=== PATIENT | female | born 1940 | race Caucasian/White ===

== ENCOUNTER 2018-12-13 06:51 | Outpatient (CLI) | payer MEDICARE ==
[~2018-12-13] VITALS: Ht 152.4 cm; Wt 61.7 kg
[2018-12-13] VITALS (31 sets, daily range): BP systolic 115–179; BP diastolic 46–125; PULSE 79–98
[2018-12-13] MEDS ORDERED: LASIX 40MG TABL40 MG PO (07:02)
[2018-12-13] MEDS ORDERED: PRILOSEC 20MG20 MG PO (07:03)
[2018-12-13] MEDS ORDERED: AMITRIPTYLINE H50 M1 PO (07:05)
[2018-12-13] MEDS ORDERED: SYNTHROID0.1 MG/TAB PO (07:06)
[2018-12-13] MEDS ORDERED: ASPIRIN 81M81 MG/TA2 PO (07:06)
[2018-12-13] MEDS ORDERED: MASON NATURAL2000 IU PO (07:07)
[2018-12-13] MEDS ORDERED: CLARITIN-D 10 M1 T24 PO (07:08)
--- NOTE | 2018-12-13 08:00 | NUR ---
PT BROUGHT INTO CT AND PLACED ON THE TABLE. MONITORING EQUIPMENT PLACED. IMAGES TAKEN AND SENT
--- NOTE | 2018-12-13 08:30 | NUR ---
PROCEDURE IS COMPLETED. MONITORING EEQUIPPMENT REMOVED. PT TRANSFERED TO CART WITH ASSIST. PT DENIES PAIN. SITE IS CDI.
--- NOTE | 2018-12-13 10:40 | NUR ---
pT BACK TO ct PER dR [facility] REQUEST.rEPORT TO Siomara LOVELL.
--- NOTE | 2018-12-13 11:00 | NUR ---
PT WAS TAKEN BACK TO CT FOR AN ADDITIONAL BX OF RML. MONITORING EQUIPMENT PLACED.
--- NOTE | 2018-12-13 11:10 | NUR ---
PT DOING WELL.
--- NOTE | 2018-12-13 11:20 | NUR ---
PROCEDURE COMPLETED. SAMPLES TAKEN. PT DID COUGH UP BLOOD. PT TRANSFERED TO CART AND TAKEN TO EU 10.
--- NOTE | 2018-12-13 15:40 | NUR ---
Per elliott Gómez to discharge pt home
--- NOTE | 2018-12-13 15:45 | NUR ---
Discharge instructions given to pt.pt verbalizes understanding.INT remoed,catheter tip intact.Pt escorted out via wheelchair by this nurse.
== END 2018-12-13 16:12 | disposition home or self-care (01) ==
LOC: COL.RAD 06:51
DX: C34.11 Malignant neoplasm of upper lobe, right bronchus or lung (principal); J95.811 Postprocedural pneumothorax; Z90.710 Acquired absence of both cervix and uterus
CPT/HCPCS: 32106; 32107

== ENCOUNTER 2019-07-30 10:05 | Observation (INO) | payer MEDICARE ==
[~2019-07-30] VITALS: Ht 152.4 cm; Wt 58.0 kg
[~2019-07-30 10:05] MED LIST: AMITRIPTYLINE H50 M1 PO; ASPIRIN 81M81 MG/TA2 PO; CLARITIN-D 10 M1 T24 PO; LASIX 40MG TABL40 MG PO; MASON NATURAL2000 IU PO; PRILOSEC 20MG20 MG PO; SYNTHROID0.1 MG/TAB PO
[2019-07-30 11:23] LABS: HEMOGLOBIN 10.9 g/dl (12.5-16.0); MEAN CELL VOLUME 90 fl (80.0-100.0); MEAN CORPUSCULAR HEMOGLOBIN 29 pg (27.0-31.0); MEAN CORPUSCULAR HGB CONC 32 g/dl (33.0-37.0); MEAN PLATELET VOLUME 9.4 fl (7.4-10.4); PLATELET COUNT 294 K/mm3 (130-400); RED BLOOD COUNT 3.79 M/mm3 (4.10-5.30); REDCELL DISTRIBUTION WIDTH-CV 16.8 % (11.5-14.5)
[2019-07-30 11:29] LABS: PROTHROMBIN TIME 11.1 SECONDS (9.7-12.8)
[2019-07-30 11:32] LABS: ALANINE AMINOTRANSFERASE 15 U/L (9-52); ALBUMIN 3.3 gm/dL (3.5-5.0); ALKALINE PHOSPHATASE 95 U/L (50-136); ANION GAP 7 mmol/L (7-16); AST,SGOT 17 U/L (15-37); BILIRUBIN,TOTAL 0.4 mg/dL (0.0-1.0); BLOOD UREA NITROGEN 19 mg/dL (7-17); CALCIUM 9.2 mg/dL (8.4-10.2); CARBON DIOXIDE 23 mmol/L (22-30); CHLORIDE 104 mmol/L (98-107); CREATININE, serum 0.77 (0.52-1.25); GLUCOSE 106 mg/dL (74-106); POTASSIUM 4.1 mmol/L (3.4-5.0); SODIUM 134 mmol/L (137-145); TOTAL PROTEIN 5.8 gm/dL (6.4-8.2)
[2019-07-30 11:39] LABS: HEMATOCRIT 34.2 % (37.0-47.0)
[2019-07-30 11:44] LABS: TROPONIN-I < 0.012 ng/mL (0.000-0.035)
[2019-07-30 11:51] LABS: BAND 29 % (0-10); EOSINOPHIL 1 % (0-4); LYMPHOCYTE 3 % (20.0-51.0); NEUTROPHILS 65 % (42.0-75.2); PLATELET ESTIMATE NORMAL (NORMAL)
[2019-07-30 11:54] LABS: ARTERIAL BLD GAS O2 SATURATION 96.7 % (92-100); ARTERIAL BLOOD GAS BASE EXCESS -1.2 (-2-2); ARTERIAL BLOOD GAS PCO2 31.9 mmHg (35-45); ARTERIAL BLOOD GAS PO2 82.3 mmHg (80-100); ARTERIAL BLOOD GAS pH 7.46 (7.35-7.45)
[2019-07-30 14:58] VITALS: BP 125/67; PULSE 96; TEMP 97.7
--- NOTE | 2019-07-30 15:00 | NUR ---
Pt up to room 315, assisted to bathroom and bed, sba. Pt has steady gait. Pt oriented to room. Hospitalist aware of pt arrival to floor. RT in to see pt at this time. Will complete admission soon.
[2019-07-30 17:50] VITALS: BP 125/67; PULSE 96; TEMP 97.7
--- NOTE | 2019-07-30 18:01 | NUR ---
Pt assessment, med rec, allergies, pharmacy completed. Pt is A&O, hard of hearing but wearing hearing aids. Pt ambulates w/ SBA. LS bases diminished, UL bilaterally clear. Pt on 2L NC, satting ok. breathing is even and unlabored unless she gets up moving around. Denies SOB at this time. Pt on tele. Pt has Rt upper chest portacath, accessed in ED. Came up on IVF, flushes w/o complications. IVF dc'd. RVP collected. Heart RRR. No edema noted. No skin issues noted. Pt denies dizziness, N/V/D, abdominal pain. States she has some lightheadedness. Pulses strong bilaterally. BS active. No other concerns expressed at this time. pt received late lunch tray upon arrival to floor and will receive dinner. Call light within reach.
[2019-07-30] MEDS ORDERED: MIRALAX PA17 GM/Dose PO (18:11)
[2019-07-30 18:32] LABS: COLLECTION METHOD CLEAN CATCH
[2019-07-30 18:50] LABS: PH 5 (5-8); URINE APPEARANCE Clear; URINE BACTERIA Rare /hpf; URINE BILIRUBIN Negative (NEGATIVE); URINE BLOOD Negative (NEGATIVE); URINE COLOR Yellow; URINE GLUCOSE Negative (NEGATIVE); URINE KETONE Trace (NEGATIVE); URINE LEUKOCYTE ESTERASE Negative (NEGATIVE); URINE NITRATE Negative (NEGATIVE); URINE PROTEIN(semi-quant) Negative (NEGATIVE); URINE RBC 0-2 /hpf; URINE UROBILINOGEN Negative (NEGATIVE)
[2019-07-30 22:00] VITALS: BP 133/63; PULSE 94; TEMP 96.6
--- NOTE | 2019-07-30 22:00 | NUR ---
Shift assessment complete. Patient ambulated to BR with assist x1. Brushed teeth. Denies pain. Denies further needs at this time. Will continue to monitor.
[2019-07-31 04:00] VITALS: BP 140/55; PULSE 95; TEMP 97.8
[2019-07-31 06:14] LABS: HEMOGLOBIN 10.6 g/dl (12.5-16.0); MEAN CELL VOLUME 91 fl (80.0-100.0); MEAN CORPUSCULAR HEMOGLOBIN 29 pg (27.0-31.0); MEAN CORPUSCULAR HGB CONC 32 g/dl (33.0-37.0); MEAN PLATELET VOLUME 9.6 fl (7.4-10.4); PLATELET COUNT 341 K/mm3 (130-400); RED BLOOD COUNT 3.64 M/mm3 (4.10-5.30); REDCELL DISTRIBUTION WIDTH-CV 17.1 % (11.5-14.5)
[2019-07-31 06:32] LABS: CALCIUM 9.6 mg/dL (8.4-10.2); CREATININE, serum 0.6 (0.52-1.25); POTASSIUM 4.5 mmol/L (3.4-5.0)
[2019-07-31 07:27] LABS: BAND 23 % (0-10); LYMPHOCYTE 2 % (20.0-51.0); METAMYELOCYTE 1 % (0-0); NEUTROPHILS 73 % (42.0-75.2); OVALOCYTES 2+; PLATELET ESTIMATE NORMAL (NORMAL); SCHISTOCYTES 1+
--- NOTE | 2019-07-31 09:14 | NUR ---
Pt recieved ABRAXANE last 07/25/[address] Aparicio's office as verified with their office staff. Precautions for this drug would be Gown and double gloves when dealing with urine or stool for the 2 days following administration. This pt no longer requires chemotherapy precautions.
[2019-07-31 09:28] VITALS: BP 121/53; PULSE 107; TEMP 98.1
[2019-07-31 11:19] VITALS: BP 129/54; PULSE 95; TEMP 98.4
[2019-07-31] MEDS ORDERED: MONODOX100 PO (11:55)
--- NOTE | 2019-07-31 11:59 | NUR ---
SW met with the patient to discuss discharge plan. The patient lives in [place] with her daughter, Adriana Moser (ph#[phone]). She reports independence with ADLs and has a cane and rolaider. The patient's PCP is Dr. Delta Pagan and she receives her medications at [facility]. She reports no difficulties obtaining her meds. The patient does not have advanced directives and she was not interested in completing them at this time. The patient plans to return home with her daughter upon discharge. The patient is currently requiring oxygen. An exercise oximetry has been ordered. SW to continue to follow.
--- NOTE | 2019-07-31 13:05 | NUR ---
Pt assessment completed and charted. Morning medications administered per AUG. Pt A&O, independent w/ walker, [place] but wearing hearing aids. Pt has RUC port in place, flushes w/o complications. No edema noted, LS clear, heart RRR, occasionally tachy. Pt on 2L NC, satting ok. Pt has been up w/ therapy ambulating w/o issue. Pt denies pain at this time. breathing is even and unlabored at this time but pt states she has some SOB. Pt denies dizziness, N/V/D, abdominal pain, chest pain. No other needs at this time.
[2019-07-31 14:56] VITALS: BP 146/64; PULSE 95; TEMP 97.9
--- NOTE | 2019-07-31 16:38 | NUR ---
The patient did not qualify for oxygen. The patient is to discharge back home today, 07/31. No additional needs at this time.
--- NOTE | 2019-07-31 17:00 | NUR ---
Discharge paperwork reviewed with patient and family. Patient verbalized an understanding of following doctors orders. Port RU chest deaccessed. 500ml heparin, patient tolerated well, bandaid applied. No further needs expressed from patient. Nursing staff transfered patient by wheelchair to vehicle. Personal belongings and discharge paperwork with patient.
== END 2019-07-31 17:00 | disposition home or self-care (01) ==
LOC: COL.ER 10:05 → MEDICAL 12:58
PROVIDERS: Emergency Medicine; Physician Assistant; ADMIT Student in an Organized Health Care Education/Training Program
DX: J96.01 Acute respiratory failure with hypoxia (principal); D72.829 Elevated white blood cell count, unspecified; D64.9 Anemia, unspecified; R94.31 Abnormal electrocardiogram [ECG] [EKG]; C34.90 Malignant neoplasm of unspecified part of unspecified bronchus or lung; I08.2 Rheumatic disorders of both aortic and tricuspid valves; K21.9 Gastro-esophageal reflux disease without esophagitis; G62.9 Polyneuropathy, unspecified; Z88.2 Allergy status to sulfonamides
CPT/HCPCS: A4216; G0378; J0696; J1644; J1650; J2930; J7030; Q9967